=== PATIENT | male | born 1980 | race Two or more races ===

== ENCOUNTER 2017-03-24 09:47 | Emergency (ER) | payer BC ==
[~2017-03-24] VITALS: Ht 175.3 cm; Wt 68.0 kg
[~2017-03-24 09:47] MED LIST: ALPR0.25; PAXIL
[2017-03-24 10:21] LABS: Basophils # (auto) 0.1 uL; Basophils % (auto) 0.9 % (0.0-2.0); Eosinophils # (auto) 0.1 uL; Eosinophils % (auto) 0.5 % (0.0-7.0); Hematocrit 43.8 % (41.0-53.0); Hemoglobin 14.7 g/dL (13.5-17.5); Lymphocytes # (auto) 1.5 uL; Lymphocytes % (auto) 11.5 % (10.0-50.0); Mean Corpuscular Hemoglobin 31.1 pg (28.0-32.0); Mean Corpuscular Hgb Conc. 33.7 g/dL (32.0-36.0); Mean Corpuscular Volume 92.5 fL (80.0-100.0); Monocytes # (auto) 0.2 uL; Monocytes % (auto) 1.9 % (0.0-12.0); Neutrophils % (auto) 85.2 % (37.0-80.0); Platelet Count (auto) 294 10^3/uL (140-450); Red Blood Cells 4.73 10^6/uL (4.5-5.90); Red Cell Distribution Width 13.3 % (11.8-14.3); White Blood Cell 12.9 10^3/uL (4.4-10.8)
[2017-03-24] MEDS ORDERED: MORPHINE SULFATE 10 MG/ML INJ 1ML SDV IV ONE ×2 (10:30→12:45)
[2017-03-24] MEDS ORDERED: ONDANSETRON HCL 4 MG/2 ML VIAL IV ONE (10:30)
[2017-03-24 10:42] LABS: Albumin 4.4 g/dL (3.4-5.0); BUN/Creatinine Ratio 23.9; Calcium 9.7 mg/dL (8.5-10.1); Potassium 3.8 mmol/L (3.5-5.1)
[2017-03-24 10:45] LABS: Bilirubin, Total 0.4 mg/dL (0.2-1.0); Total Protein 8.2 g/dL (6.4-8.2)
[2017-03-24] MEDS ORDERED: SODIUM CHLORIDE 0.9% 1,000 ML IV ONE (11:11)
[2017-03-24] MEDS ORDERED: HYDROmorphone HCL 2 MG/ML VL IV ONE (12:45)
[2017-03-24] MEDS ORDERED: PROMETHAZINE HCL 25 MG/ML 1ML IV ONE (12:45)
[2017-03-24 13:22] VITALS: BP 105/42
== END 2017-03-24 13:23 | disposition home or self-care (01) ==
LOC: ER 09:47
DX: K52.9 Noninfective gastroenteritis and colitis, unspecified (principal); F17.210 Nicotine dependence, cigarettes, uncomplicated; F12.10 Cannabis abuse, uncomplicated
CPT/HCPCS: 36415; 74176; 80053; 83690; 85025; 87040; 96361; 96374; 96375; 96376; 99285; J2270; J2405; J2550; J7030